=== PATIENT | male | born 1990 | race Two or more races ===

== ENCOUNTER 2020-11-01 10:35 | Emergency (ER) | payer OTHER ==
[~2020-11-01] VITALS: Ht 167.6 cm; Wt 154.2 kg
[2020-11-01 12:45] VITALS: BP 111/52
[2020-11-01] MEDS ORDERED: IBUPROFEN 800 MG TAB PO ONE (13:30)
== END 2020-11-01 13:53 | disposition home or self-care (01) ==
LOC: ER 10:35 → EDBD 10:35 → ER 13:53
DX: S80.01XA Contusion of right knee, initial encounter (principal); S80.02XA Contusion of left knee, initial encounter; S00.01XA Abrasion of scalp, initial encounter; V49.49XA Driver injured in collision with other motor vehicles in traffic accident, initial encounter; Y93.89 Activity, other specified; Y92.488 Other paved roadways as the place of occurrence of the external cause; Y99.8 Other external cause status
CPT/HCPCS: 73562